=== PATIENT | male | born 1950 | race Caucasian/White ===

== ENCOUNTER 2020-12-12 12:55 | Outpatient (REF) | payer OTHER, SELFPAY ==
--- NOTE | 2020-12-12 13:00 | EEG_ITS ---
The waking background activity consists of a well-defined 9 to 10 hertz posterior alpha frequency that is seen symmetrically and attenuates well with eye opening while low-voltage fast frequencies predominate anteriorly. Drowsiness is characterized by diffuse theta slowing. During sleep, symmetrical frontal central sleep spindles develop over both hemispheres. Arousals are unremarkable. The patient remained asymptomatic. No focal, lateralizing, or paroxysmal discharges seen. IMPRESSION: This 24-hour ambulatory EEG is within normal limits. MD MARLEN Trimble/LULA / [id number]
== END 2020-12-12 12:56 | disposition home or self-care (01) ==
LOC: HO.NEURO 12:55
PROVIDERS: Visit Provider Psychiatry & Neurology Neurology
DX: G40.909 Epilepsy, unspecified, not intractable, without status epilepticus (principal)
CPT/HCPCS: 95708; 95957